=== PATIENT | male | born 1970 | race Caucasian/White ===

== ENCOUNTER 2017-05-29 19:49 | Emergency (ER) | payer SELFPAY ==
[~2017-05-29] VITALS: Ht 188 cm; Wt 130.0 kg
[2017-05-29 19:54] VITALS: BP 147/90; PULSE 92; RESP 16; TEMP 98.6
[2017-05-29] MEDS ORDERED: HYDR-4107 PO (19:57)
[2017-05-29] MEDS ORDERED: TRAM50TA PO (19:57)
--- NOTE | 2017-05-29 20:12 | PD ---
HPI Chief Complaint: Medication Refill Request Time Seen by Provider: 20:05 Travel History International Travel<30 days: No Contact w/Intl Traveler<30days: No Traveled to known affect area: No History of Present Illness HPI 46-year-old male presents emergency department for evaluation of right low back pain radiating down into the leg 2 years. Patient originally called EMS to bring him to the emergency room for blood pressure medication refill. He reports pain is constant, radiating from the right low back down into the buttocks and thigh. He denies fever, chills, incontinence, saddle anesthesia, numbness/weakness/tingling or lower extremity. PFSH Past Medical History Narrative Medical Hypertension, chronic low back pain Hypertension: Yes Medical other: Yes (CHRONIC BACK PAIN ) Tetanus Vaccination: > 5 Years Social History Alcohol Use: Yes (WEEKLY ) Tobacco Use: No Substance Use: No Allergies-Medications (Allergen,Severity, Reaction): Coded Allergies: No Known Allergies (Unverified , 05/29/17) Reported Meds & Prescriptions Reported Meds & Active Scripts Active Reported Hydrocodone-Acetaminophen 5-300 Mg Tab 1 Tab PO Q4H PRN Tramadol (Tramadol HCl) 50 Mg Tab 50 Mg PO Q6H PRN Review of Systems Except as stated in HPI: all other systems reviewed are Neg General / Constitutional: No: Fever Eyes: No: Visual changes HENT: No: Headaches Cardiovascular: No: Chest Pain or Discomfort Respiratory: No: Shortness of Breath Gastrointestinal: No: Abdominal Pain Genitourinary: No: Dysuria Skin: No Rash Neurologic: No: Weakness Physical Exam Narrative GENERAL: Alert, well-appearing male no acute distress. Resting comfortably on stretcher. SKIN: Focused skin assessment warm/dry. HEAD: Atraumatic. Normocephalic. EYES: Pupils equal and round. No scleral icterus. No injection or drainage. ENT: No nasal bleeding or discharge. Mucous membranes pink and moist. NECK: Trachea midline. No JVD. CARDIOVASCULAR: Regular rate and rhythm. No murmur appreciated. RESPIRATORY: No accessory muscle use. Clear to auscultation. Breath sounds equal bilaterally. GASTROINTESTINAL: Abdomen soft, non-tender, nondistended. Hepatic and splenic margins not palpable. MUSCULOSKELETAL: No obvious deformities. No clubbing. No cyanosis. No edema. BACK: No CVA tenderness. No rash. No point tenderness on palpation of the spine. Positive straight leg raise. NEUROLOGICAL: Awake and alert. No obvious cranial nerve deficits. Motor grossly within normal limits. Normal speech. PSYCHIATRIC: Appropriate mood and affect; insight and judgment normal. Data Data Last Documented VS Vital Signs Date Time Temp Pulse Resp B/P Pulse Ox O2 Delivery O2 Flow Rate FiO2 05/29/17 19:54 98.6 92 16 147/[address] [facility] Medical Decision Making Medical Screen Exam Complete: Yes Emergency Medical Condition: Yes Differential Diagnosis SCIATICA, ACUTE ON CHRONIC LOW BACK PAIN, LUMBAR STRAIN Narrative Course 46-year-old male presents emergency department for evaluation of right low back pain radiating down into the leg 2 years. Patient originally called EMS to bring him to the emergency room for blood pressure medication refill. He reports pain is constant, radiating from the right low back down into the buttocks and thigh. His physical exam is reassuring. Patient be treated for sciatica. Diagnosis Primary Impression: Sciatica Qualified Code: M54.31 - Sciatica of right side Referrals: Primary Care Physician Additional Instructions: Take [id number] Motrin [id number] milligrams by mouth every 6-8 hours as needed for pain. Follow up with her primary care doctor. Disposition: 01 DISCHARGE HOME Condition: Stable Princess Bojorquez May 29, 2017 20:12
[2017-05-29] MEDS ORDERED: KETOROLAC TROMETHAMINE 60 MG/2 ML (IM) VIAL IM ONE (20:15)
[2017-05-29 20:37] VITALS: BP 144/88; PULSE 89; RESP 14; O2SAT 98
--- NOTE | 2017-05-29 20:59 | PD ---
Physical Exam Narrative Patient states that he has history of chronic back pain and was evaluated by physician outside the state. Patient states that he has history of uneven pelvis tilting. Patient awaiting surgery. Patient states that he has trouble walking today. Patient denies any focal numbness of the lower extremity. Patient states that this is acute exacerbation of chronic condition. Patient denies any problem with bowel or bladder control. Patient was seen by my physician virtual office assistant and subsequently I saw the patient. When came to see the patient in room, patient ambulated by himself to the bathroom and came back to the bed by himself with assistance of a cane without any problem. Data Data Last Documented VS Vital Signs Date Time Temp Pulse Resp B/P Pulse Ox O2 Delivery O2 Flow Rate FiO2 05/29/17 20:37 89 14 144/88 98 Room Air 05/29/17 19:54 98.6 Orders Ketorolac Inj (Toradol Inj) (05/29/17 20:15) Ct Lumb Spine W/O Contrast (05/29/17 20:54) MDM Supervised Visit with ANTONIO: Yes Diagnosis Primary Impression: Acute exacerbation of chronic low back pain Additional Impression: Sciatica Qualified Code: M54.31 - Sciatica of right side Referrals: Primary Care Physician Patient Instructions: General Instructions, Sciatica (ED) Departure Forms: Tests/Procedures Additional Instruction: Ibuprofen and Robaxin as needed for pain. Follow-up with local physician. Med/Other Pt SpecificInfo: Prescription(s) given Scripts Methocarbamol (Robaxin)750 Mg [id number] Mg PO QID #40 TAB Prov:Jose G Mathews MD 05/29/17 Ibuprofen 600 Mg [id number] Mg PO TID #60 TAB Prov:Jose G Mathews MD 05/29/17 Disposition: 01 DISCHARGE HOME Condition: Stable Jose G Mathews MD May 29, 2017 20:59
[2017-05-29] MEDS ORDERED: IBUP-232 PO (21:02)
[2017-05-29] MEDS ORDERED: ROBA750T PO (21:02)
--- NOTE | 2017-05-29 21:48 | RADRPT ---
EXAM DATE/TIME: 05/29/2017 21:11 [facility] COMPARISON: No previous studies available for comparison. INDICATIONS : Lower back pain, elevated BP. No trauma. RADIATION DOSE: 35.86 CTDIvol (mGy) MEDICAL HISTORY : Hypertension. Sciatica per patient SURGICAL HISTORY : None. ENCOUNTER: Initial ACUITY: 1 day PAIN SCALE: 7/10 LOCATION: lumbar TECHNIQUE: Volumetric scanning of the lumbar spine was performed. Multiplanar reconstructions in the sagittal, coronal and oblique axial planes were performed. Using automated exposure control and adjustment of the mA and/or kV according to patient size, radiation dose was kept as low as reasonably achievable t o obtain optimal diagnostic quality images. DICOM format image data is available electronically for review and comparison. FINDINGS: There is normal alignment of the vertebral bodies of the lumbar spine. No compression deformities se en. Vacuum phenomenon is seen in narrowed discs of L3-4, L4-5, and L5-S1. There is moderate hypertr ophic changes in the posterior elements from L2-S1 with vacuum phenomenon in the facet joints on the right side at L4-5 and L5-S1. No evidence of pars defect. Transient spinous processes are intact. Nonbridging anterior paravertebral ossification is present at T12-L1. T12-L1: The thecal sac has a normal diameter. No evidence of disc bulge or protrusion. The neural foramina are patent bilaterally. L1-L2: The thecal sac has a normal diameter. No evidence of disc bulge or protrusion. The neural foramina are patent bilaterally. L2-L3: The thecal sac has a normal diameter. No evidence of disc bulge or protrusion. The neural foramina are patent bilaterally. L3-L4: Central disc bulging or protrusion measures 7 mm in AP diameter and does cause indentation on the araceli tral margin of the thecal sac. There is moderate bilateral bony neural foraminal stenosis. L4-L5: Broad-based bulging of the disc flattens the ventral margin of the thecal sac. There is some extensi on into the neural foramen bilaterally. There is also moderate bilateral bony neural foraminal steno sis.L5-S1: Facet joint hypertrophy causes focal narrowing of the neural foraminal bilaterally. Left paracentral disc bulge or protrusion does not deform the thecal sac and does not deviate the S1 nerve root. CONCLUSION: No evidence of compression deformity or spondylolisthesis. Multilevel disc degeneration and bony yolande ral foraminal stenosis as described above. Probable central disc protrusion at L3-4 and left paracen tral bulging of the L5-S1 disc. Cody English MD on May 29, 2017 at 21:34 Board Certified Radiologist. This report was verified electronically.
== END 2017-05-29 22:33 | disposition home or self-care (01) ==
LOC: NEPD 19:49
DX: M54.41 Lumbago with sciatica, right side (principal); G89.29 Other chronic pain; I10 Essential (primary) hypertension; Z79.899 Other long term (current) drug therapy
CPT/HCPCS: 72131; 96372; 99285; J1885